=== PATIENT | male | born 1965 | race Caucasian/White ===

== ENCOUNTER 2018-12-07 17:00 | Emergency (ER) | payer BC ==
--- NOTE | 2018-12-07 18:45 | ERPHSYRPT ---
- History of Present Illness Time Seen by Provider: 12/07/18 18:41 Source: patient Exam Limitations: no limitations Patient Subjective Stated Complaint: mouth/gum pain, congestion Triage Nursing Assessment: Pt c/o of left upper gum pain and congestion, pain began 4 days ago and congestion 2 days ago, all teeth pulled many years ago, does not wear dentures, vitals wnl, rates pain 6/10 Physician History: Pt is c/o sinus, head congestion, productive cough, yellow phlegm x 4 days, denies fever, severe headaches, vomiting, chest pain, diarrhea, other complaints , no SOB or distress. He also started c/o pain in the middle of his mouth roof since yesterday, denies any injury, swelling or difficulty swallowing. Timing/Duration: day(s) (4) Cough Quality/Degree: productive cough, sputum Possible Cause: no prior episodes Modifying Factors: Improves With: nothing Associated Symptoms: cough, facial pain, nasal congestion, sinus infection, sore throat Allergies/Adverse Reactions: No Known Drug Allergies Allergy (Verified 12/07/18 18:05) Home Medications: Aspirin EC 81 mg [Ecotrin 81 mg] 81 mg PO DAILY 12/07/18 [History] Atorvastatin Calcium [Lipitor] 80 mg PO DAILY 12/07/18 [History] Lisinopril 5 mg [Zestril 5 MG] 5 mg PO DAILY 12/07/18 [History] Hx Tetanus, Diphtheria Vaccination/Date Given: No (pt unsure) Hx Influenza Vaccination/Date Given: No Hx Pneumococcal Vaccination/Date Given: No - Review of Systems Constitutional: No Symptoms Eyes: No Symptoms Ears, Nose, & Throat: Nose Congestion, Sinus Drainage, Mouth Pain, Throat Pain, No Hoarse, No Painful Swallowing, No Stridor Respiratory: Cough, No Dyspnea, No Stridor, No Wheezing Cardiac: No Symptoms Abdominal/Gastrointestinal: No Symptoms Musculoskeletal: No Symptoms Skin: No Symptoms Neurological: No Symptoms All Other Systems: Reviewed and Negative - Past Medical History Pertinent Past Medical History: No Neurological History: Stroke Cardiac History: No Pertinent History, High Cholesterol, Hypertension Respiratory History: No Pertinent History Endocrine Medical History: No Pertinent History Musculoskeletal History: No Pertinent History - Past Surgical History Past Surgical History: Yes Musculoskeletal: Orthopedic Surgery Other Surgical History: left jaw surgery - Social History Smoking Status: Current every day smoker How long have you smoked: 35 Exposure to second hand smoke: Yes Drug Use: none Patient Lives Alone: No - Nursing Vital Signs Nursing Vital Signs: Initial Vital Signs Temperature 97.7 F 12/07/18 17:56 Pulse Rate 77 12/07/18 17:56 Blood Pressure 145/89 12/07/18 17:56 O2 Sat by Pulse Oximetry 98 12/07/18 17:56 Pain Scale Pain Intensity 6 - Physical Exam General Appearance: no apparent distress Eye Exam: eyes nml inspection Ears, Nose, Throat Exam: normal ENT inspection, pharynx normal, moist mucous membranes, other (no teeth or denture, no gum lesions or ulcer.), No pharyngeal erythema, No tonsillar exudate Neck Exam: normal inspection, non-tender, supple, No JVD Respiratory Exam: airway intact, rhonchi (few, scattered bilaterally.), No chest tenderness, No respiratory distress, No crackles/rales, No wheezing, No stridor Cardiovascular Exam: regular rate/rhythm, normal heart sounds, normal peripheral pulses, No murmur Gastrointestinal/Abdomen Exam: soft, normal bowel sounds, No tenderness Extremity Exam: normal inspection, No calf tenderness, No anuj's sign Neurologic Exam: alert, oriented x 3, cooperative, normal mood/affect Skin Exam: normal color, warm, dry, No rash, No petechiae Lymphatic Exam: No adenopathy SpO2 Interpretation: normal SpO2: 98 O2 Delivery: Room Air - Course Nursing assessment & vital signs reviewed: Yes - Radiology Exams Chest X-ray Interpretation: Interpreted by me, Negative Ordered Tests: Active Orders 24 hr Category Date Time Status CHEST 2 VIEWS (PA AND LAT) Stat Exams 12/07/18 18:41 Ordered Peak Expiratory Flow Rate ONCE RT 12/07/18 19:11 Completed Respiratory Nebulizer STAT RT 12/07/18 18:48 Completed Respiratory Therapy Assessment DAILY RT 12/07/18 18:53 Active Medication Summary Discontinued Medications Generic Name Dose Route Start Last Admin Trade Name Freq PRN Reason Stop Dose Admin Albuterol Sulfate 2.5 mg 12/07/18 18:47 12/07/18 19:12 Proventil 2.5 Mg/3 Ml Neb IH 12/07/18 18:48 2.5 mg STAT ONE Administration Albuterol Sulfate Confirm 12/07/18 19:08 Proventil 2.5 Mg/3 Ml Neb Administered 12/07/18 19:09 Dose 2.5 mg IH .STK-MED ONE - Progress Progress: improved Air Movement: good Progress Note: 12/07/18 19:19 Pt states, he improved after Duoneb treatment, we discussed his results, he is going to be discharged on Albuterol inhaler, Amoxicillin, to rest x 2-3 days, drink plenty of fluids, and follow up with his physician as scheduled in 3-4 days. Blood Culture(s) Obtained: No Antibiotics given: Yes Counseled pt/family regarding: lab results, diagnosis, need for follow-up, rad results - Departure Departure Disposition: Home Clinical Impression: Bronchitis Sinusitis Qualifiers: Sinusitis location: unspecified location Chronicity: acute Recurrence: non- recurrent Qualified Code(s): J01.90 - Acute sinusitis, unspecified Condition: Stable Critical Care Time: No Referrals: BRANNON NOGUEIRA [Primary Care Provider] - Instructions: Acute Bronchitis, Adult (DC), Sinusitis, Adult (DC) Additional Instructions: Rest x 2-3 days, drink plenty of fluids, and follow up with your physician in 3- 4 days, return if severe shortness of breath, chest pain, vomiting, fever> 102 F ! Prescriptions: Albuterol 8 gm Mdi Hfa [Ventolin Hfa MDI] 8 gm IH Q4H PRN #1 [email or web address] PRN Reason: Shortness Of Breath/Wheezing Amoxicillin 500 mg PO TID 10 Days #30 capsule
[2018-12-07] MEDS ORDERED: PROVENTIL 2.5 MG/3 ML NEB IH ONE ×2 (18:47→19:08)
[2018-12-07] MEDS ORDERED: AMOXIL 500 MG PO ONE (19:19)
[2018-12-07] MEDS ORDERED: Ventolin Hfa MDI IH ONE (19:22)
[2018-12-07 19:26] LABS: Group A Strep NEGATIVE (NEGATIVE); INFLUENZA A NEGATIVE (NEGATIVE); INFLUENZA B NEGATIVE (NEGATIVE); RESPIRATORY SYNCTIAL VIRUS NEGATIVE (Negative)
--- NOTE | 2018-12-07 20:06 | XRAY ---
Indication: Cough. Comparison: None PA/lateral chest obtained. Lateral view limited as the posterior gutters not completely included. No focal infiltrate, consolidation, or large effusion. Heart and mediastinal structures within normal limits. Bony thorax intact. Impression: Nonacute limited chest.
[2018-12-07] MEDS ORDERED: AMOXIL 500 MG ONE (20:28)
[2018-12-07 20:30] VITALS: BP 134/72; PULSE 71; O2SAT 99
== END 2018-12-07 20:36 | disposition home or self-care (01) ==
LOC: ED 17:00
DX: J40 Bronchitis, not specified as acute or chronic (principal); J01.90 Acute sinusitis, unspecified; E78.00 Pure hypercholesterolemia, unspecified; I10 Essential (primary) hypertension
CPT/HCPCS: 71046; 87631; 87651; 94640; 99284; J7609; A9270-GY